=== PATIENT | male | born 1945 | race Caucasian/White ===

== ENCOUNTER 2024-01-10 12:40 | Day surgery (SDC) | payer MEDICARE, OTHER ==
[~2024-01-10] VITALS: Ht 177.8 cm; Wt 86.3 kg
== END 2024-01-10 14:58 | disposition home or self-care (01) ==
LOC: ORSCSDS 12:40
PROC: 08RJ3JZ Replacement of Right Lens with Synthetic Substitute, Percutaneous Approach (ICD-10-PCS; principal; 2024-01-10)
DX: H25.813 Combined forms of age-related cataract, bilateral (principal); H25.11 Age-related nuclear cataract, right eye; I10 Essential (primary) hypertension; I25.10 Atherosclerotic heart disease of native coronary artery without angina pectoris; Z79.82 Long term (current) use of aspirin; Z79.899 Other long term (current) drug therapy